=== PATIENT | male | born 1940 | race Caucasian/White ===

== ENCOUNTER 2016-02-29 16:28 | Emergency (ER) | payer MEDICARE ==
[~2016-02-29] VITALS: Ht 175.3 cm; Wt 90.0 kg
[2016-02-29 16:30] VITALS: BP 227/98; PULSE 84; RESP 16; TEMP 98.3; O2SAT 97
[2016-02-29 16:53] VITALS: BP 181/81; PULSE 73; RESP 18; O2SAT 98
[2016-02-29] MEDS ORDERED: LIDOCAINE 1%/EPINEPHrine 1:100,000 SOLN 20 ML VIAL INFIL ONE (17:00)
[2016-02-29] MEDS ORDERED: TETANUS/DIPHTHERIA TOXOID ADULT 0.5 ML VIAL IM ONE (17:00)
--- NOTE | 2016-02-29 17:19 | PD ---
HPI Chief Complaint: Laceration/Skin Injury Time Seen by Provider: 16:45 Travel History International Travel<30 days: No Contact w/Intl Traveler<30days: No Traveled to known affect area: No History of Present Illness HPI Patient is a 75-year-old male who presented to emergency for evaluation of laceration to his left forearm. Patient sustained a laceration when he piece of artwork fell on his arm while he was attempting to hang it at home. Denies any head injury or loss of consciousness. He denies any numbness or tingling in his left arm. She is uncertain of when his last tetanus vaccination was. [facility] Past Medical History High Cholesterol: Yes Coronary Artery Disease: Yes Hypertension: Yes Tetanus Vaccination: Unknown Influenza Vaccination: Yes Social History Alcohol Use: Yes (on occasion) Tobacco Use: No Substance Use: No Allergies-Medications (Allergen,Severity, Reaction): Coded Allergies: No Known Allergies (Unverified , 02/29/16) Review of Systems Except as stated in HPI: all other systems reviewed are Neg Skin: Positive Change in Pigmentation, Positive Other (laceration) Physical Exam Narrative GENERAL: Well-nourished, well-developed patient. SKIN: Warm and dry. 2 cm laceration to the left lateral forearm, base of wound is well visualized. Contusion to left upper arm. HEAD: Normocephalic. EYES: No scleral icterus. No injection or drainage. NECK: Supple, trachea midline. No JVD or lymphadenopathy. CARDIOVASCULAR: Regular rate and rhythm without murmurs, gallops, or rubs. Positive radial pulse, brisk is a 3 second capillary refill. RESPIRATORY: Breath sounds equal bilaterally. No accessory muscle use. GASTROINTESTINAL: Abdomen soft, non-tender, nondistended. MUSCULOSKELETAL: No cyanosis, or edema. BACK: Nontender without obvious deformity. No CVA tenderness. Data Data Last Documented VS Vital Signs Date Time Temp Pulse Resp B/P Pulse Ox O2 Delivery O2 Flow Rate FiO2 02/29/16 16:53 73 18 181/81 98 Room Air 02/29/16 16:30 98.3 Orders Tetanus/Diphtheria Tox Adult (Tetanus/Di (02/29/16 17:00) Lidocai-Epi 1%-1:100,000 Inj (Xylocaine- (02/29/16 17:00) MDM Medical Decision Making Medical Screen Exam Complete: Yes Emergency Medical Condition: Yes Interpretation(s) Vital Signs Date Time Temp Pulse Resp B/P Pulse Ox O2 Delivery O2 Flow Rate FiO2 02/29/16 16:53 73 18 181/81 98 Room Air 02/29/16 16:48 76 18 02/29/16 16:30 98.3 84 16 227/98 97 Room Air Differential Diagnosis Laceration versus contusion versus abrasion versus fracture versus other Narrative Course Patient is a 75-year-old male who presents emergency for evaluation of laceration. Laceration occurred just prior to arrival and patient was attempting to hang a piece of heavy artwork. Patient's tetanus vaccination was updated today. His blood pressure was elevated initially, it was reassessed in the room at 181/81. Patient is on blood pressure medication which he was supposed to take it 4 PM today. See procedure report for laceration repair. Patient was advised that sutures will need to come out in 7 to 10 days. He can go to an urgent care center return to emergency department have this done. Patient was educated on signs and symptoms of infection, he was encouraged to return to the chart immediately should he experience any new or concerning symptoms. Patient verbalized understanding of these instructions. Patient is stable for discharge. Procedures Procedure Narrative LACERATION LOCATION: Left lateral forearm LENGTH: 2 cm NUMBER OF STITCHES/SENIA: 8 stitches REPAIR: The area of the laceration was prepped with Betadine and sterilely draped. The laceration was infiltrated with 1% Xylocaine. The wound was copiously irrigated and explored without evidence of foreign body, tendon injury or neurovascular injury. The wound was closed using 4-0 Prolene. This was a 1 layer repair. A sterile dressing was applied. The patient was advised to keep the dressing clean and dry. Patient tolerated the procedure well. Diagnosis Primary Impression: Laceration of forearm Qualified Code: S51.812A - Laceration of forearm, left, initial encounter Additional Impression: Contusion Qualified Code: S40.022A - Contusion of left upper arm, initial encounter Referrals: Primary Care Physician Patient Instructions: Care For Your Stitches (ED), Contusion in Adults (ED), General Instructions, Stitches Removal (DC) Additional Instructions: Keep sutures clean and dry, may apply topical antibiotic ointment to the area, cover with gauze or other non-occlusive dressing Sutures will need to come out in 7-10 days, this can be done at an urgent care center or in the emergency department. Follow-up with your primary doctor Return to emergency department for new or worsening symptoms Med/Other Pt SpecificInfo: No Change to Meds Disposition: 01 DISCHARGE HOME Condition: Stable Vanita Blue Feb 29, 2016 17:19
[2016-02-29 17:52] VITALS: BP 132/64; TEMP 98.4
== END 2016-02-29 17:54 | disposition home or self-care (01) ==
LOC: NEPE 16:28
DX: S40.022A Contusion of left upper arm, initial encounter (principal); I25.10 Atherosclerotic heart disease of native coronary artery without angina pectoris; E78.00 Pure hypercholesterolemia, unspecified; I10 Essential (primary) hypertension; Z23 Encounter for immunization; W20.8XXA Other cause of strike by thrown, projected or falling object, initial encounter; Y92.009 Unspecified place in unspecified non-institutional (private) residence as the place of occurrence of the external cause; Y99.8 Other external cause status
CPT/HCPCS: 12001; 90471; 90714

== ENCOUNTER 2016-03-10 14:20 | Emergency (ER) | payer MEDICARE ==
[~2016-03-10] VITALS: Ht 175.3 cm; Wt 90.0 kg
[2016-03-10 14:22] VITALS: BP 157/71; PULSE 80; RESP 12; TEMP 98.1; O2SAT 99
--- NOTE | 2016-03-10 16:06 | PD ---
HPI Chief Complaint: Wound/Suture/Staple Re-Check Time Seen by Provider: 16:04 Travel History International Travel<30 days: No Contact w/Intl Traveler<30days: No Traveled to known affect area: No History of Present Illness HPI 75-year-old male presents to the emergency department requesting suture removal to his left forearm. Sutures have been intact for 10 days. He denies fever, chills, nausea, vomiting. Denies drainage, erythema, swelling to the laceration site. Denies paresthesias, loss of sensation, decreased range of motion, decreased into affected extremity. No other modifying factors or associated signs and symptoms. PFSH Past Medical History High Cholesterol: Yes Coronary Artery Disease: Yes Hypertension: Yes Social History Alcohol Use: Yes (on occasion) Tobacco Use: No Substance Use: No Allergies-Medications (Allergen,Severity, Reaction): Coded Allergies: No Known Allergies (Unverified , 02/29/16) Review of Systems Except as stated in HPI: all other systems reviewed are Neg Physical Exam Narrative GENERAL: Well-nourished, well-developed occasion male patient, in no acute distress SKIN: Warm and dry. Left forearm with wound that is well approximated and sutures intact; without erythema, edema, drainage. No signs of infection. Left upper torta supplement has a 2+ radial pulses and sensory intact without erythema or edema. HEAD: Atraumatic. Normocephalic. EYES: Pupils equal and round. No scleral icterus. No injection or drainage. ENT: Mucosa pink and moist. Airway patent. NECK: Trachea midline. CARDIOVASCULAR: Regular rate. RESPIRATORY: No accessory muscle use. GASTROINTESTINAL: Rounded. MUSCULOSKELETAL: No obvious deformities. No clubbing. No cyanosis. No edema. NEUROLOGICAL: Awake and alert. Oriented 3. No obvious cranial nerve deficits. Motor grossly within normal limits. Normal speech. PSYCHIATRIC: Appropriate mood and affect; insight and judgment normal. Data Data Last Documented VS Vital Signs Date Time Temp Pulse Resp B/P Pulse Ox O2 Delivery O2 Flow Rate FiO2 03/10/16 14:22 98.1 80 12 157/71 99 Room Air MDM Medical Decision Making Medical Screen Exam Complete: Yes Emergency Medical Condition: Yes Medical Record Reviewed: Yes Differential Diagnosis Suture removal, medical clearance, laceration Narrative Course 75-year-old male presents for suture removal to his left forearm. The sutures were placed 10 days ago. The wound is well approximated without signs of infection. I did have to remove some scabbing over 3 of the sutures to remove them. Patient tolerated well. Polysporin and bandaged applied. Patient is medically cleared and stable for discharge. Discussed reasons to return to the emergency department. Instructed patient to follow up with primary care provider. Patient agrees with treatment plan. The patients vital signs are stable and the patient is stable for outpatient follow-up and treatment. Patient discharged home, stable and in no acute distress. Diagnosis Primary Impression: Visit for suture removal Referrals: Primary Care Physician Patient Instructions: Acute Wound Care (ED), General Instructions, Stitches Removal (ED) Additional Instructions: Refer to acute care instructions for continued wound care Follow up with primary care provider Return to the emergency department immediately with worsening of symptoms Med/Other Pt SpecificInfo: No Change to Meds, No Meds Exist/No RX given Disposition: 01 DISCHARGE HOME Condition: Stable Verna Morris Mar 10, 2016 16:06
== END 2016-03-10 16:29 | disposition home or self-care (01) ==
LOC: NEPB 14:20
DX: Z48.02 Encounter for removal of sutures (principal)
CPT/HCPCS: 99281